=== PATIENT | male | born 1995 | race Hispanic/Latino ===

== ENCOUNTER 2025-05-17 01:12 | Emergency (ER) | payer OTHER, SELFPAY ==
[2025-05-17] VITALS (15 sets, daily range): BP systolic 105–135; BP diastolic 55–81; PULSE 68–105; RESP 16–18; TEMP 37; O2SAT 96–100
--- NOTE | ~2025-05-17 | XR_ITS ---
EXAMINATION: XR ribs LT 2V DATE: 05/17/2025 07:33 INDICATION: Left rib pain post fall TECHNIQUE: 3 views of the left ribs were obtained. COMPARISON: Chest radiograph dated 05/17/2025 FINDINGS: No rib fractures identified. No pneumothorax. No focal infiltrates, pleural effusion or pulmonary edema. Cardiomediastinal silhouette is normal. IMPRESSION: 1. No rib fracture or acute cardiopulmonary disease. Reviewed, dictated and finalized at location A.
--- NOTE | ~2025-05-17 | XR_ITS ---
EXAMINATION: XR hand RT min 3V DATE: 05/17/2025 07:33 INDICATION: Pain at the thenar eminence of the right hand TECHNIQUE: Posteroanterior, oblique and lateral views of the right hand were obtained. COMPARISON: None. FINDINGS: 3 mm ulnar minus variance. Alignment is otherwise normal. No fracture. 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 Soft tissues are unremarkable. IMPRESSION: 1. No acute osseous abnormality. Reviewed, dictated and finalized at location A.
--- NOTE | ~2025-05-17 | XR_ITS ---
Examination: XR chest 1V portable Clinical History: fall, rib pain Comparison: None Technique: Portable AP Findings: Heart size normal. Lungs clear. No acute bony abnormality. IMPRESSION: 1. No acute cardiopulmonary findings given portable technique. Reviewed, dictated and finalized at location R.
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
[2025-05-17] MEDS: Please add drug allergy info to patient profile. 1 EACH XX (07:44)
[2025-05-17] MEDS: TETANUS,DIPHTHERIA,AC PERTUSSIS ADULT (0.5 ML) BOOSTRIX IM (07:45)
[2025-05-17] MEDS: HYDROcodone/acetaminophen (*CRX) 5-325 MG TABLET 1 TAB PO (07:45)
[2025-05-17] MEDS: LIDOCAINE 5% PATCH 1 PATCH TRANSDERM (08:19)
== END 2025-05-17 08:23 | disposition home or self-care (01) ==
PROVIDERS: Emergency Provider Student in an Organized Health Care Education/Training Program
DX: S01.01XA Laceration without foreign body of scalp, initial encounter (principal); R07.9 Chest pain, unspecified; M79.641 Pain in right hand; W17.89XA Other fall from one level to another, initial encounter; Z23 Encounter for immunization
CPT/HCPCS: 12001; 71045; 71100; 73130; 90471; 90715; 99284; A9270